=== PATIENT | female | born 1990 | race American Indian/Alaskan Native ===

== ENCOUNTER 2016-05-17 02:58 | Emergency (ER) | payer MEDICAID ==
--- NOTE | 2016-05-17 04:25 | XRay Report ---
FINAL REPORT PROCEDURE: XR NASAL BONE 3 TECHNIQUE: Nasal bones, three views including Travis and both lateral projections. CPT 66715 HISTORY: nose injury COMPARISON: No prior studies are available for comparison. FINDINGS: Bone mineralization: Normal. Fractures: None. Paranasal sinuses: Clearl. IMPRESSION: Normal Examination.
[2016-05-17] MEDS ORDERED: XYLOCAINE 1% MPF 5 mL INFILTRATI ONE (07:38)
[2016-05-17] MEDS ORDERED: MOTRIN PO ONE (07:38)
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
[2016-05-17] MEDS ORDERED: TRIPLE ANTIBIOTIC TP ONE ×2 (08:37→08:38)
[2016-05-17] MEDS ORDERED: BOOSTRIX IM ONE (08:40)
[2016-05-17 08:51] VITALS: BP 118/71
== END 2016-05-17 08:09 | disposition home or self-care (01) ==
LOC: ED 02:58
DX: S01.21XA Laceration without foreign body of nose, initial encounter (principal); F17.200 Nicotine dependence, unspecified, uncomplicated; Y04.0XXA Assault by unarmed brawl or fight, initial encounter; Y93.89 Activity, other specified; Y99.8 Other external cause status; Y92.89 Other specified places as the place of occurrence of the external cause
CPT/HCPCS: 70160; 90471; 90715; A6250